=== PATIENT | female | born 1980 | race Native Hawaiian/Other Pacific Islander ===

== ENCOUNTER 2019-06-07 16:01 | Outpatient (CLI) | payer OTHER | END 2019-06-07 20:55 | disposition home or self-care (01) | LOC: RAD 16:01 | DX: M25.571 Pain in right ankle and joints of right foot (principal) ==

== ENCOUNTER 2020-11-04 13:01 | Outpatient (CLI) | payer OTHER ==
[~2020-11-04] VITALS: Ht 160 cm; Wt 131.5 kg
[2020-11-04 13:50] VITALS: BP 157/84; TEMP 98
== END 2020-11-04 20:38 | disposition home or self-care (01) ==
LOC: INF 13:01
PROVIDERS: ATTEND Family Medicine
DX: D50.9 Iron deficiency anemia, unspecified (principal)
CPT/HCPCS: 96365; J1756

== ENCOUNTER 2020-11-11 13:00 | Outpatient (CLI) | payer OTHER ==
[~2020-11-11] VITALS: Ht 160 cm; Wt 131.1 kg
== END 2020-11-11 19:22 | disposition home or self-care (01) ==
LOC: INF 13:00
PROVIDERS: ATTEND Family Medicine
DX: D50.9 Iron deficiency anemia, unspecified (principal)
CPT/HCPCS: 96365; J1756

== ENCOUNTER 2021-04-15 10:38 | Outpatient (CLI) | payer OTHER | END 2021-04-15 20:00 | disposition home or self-care (01) | LOC: RAD 10:38 | PROVIDERS: ATTEND Nurse Practitioner Primary Care | DX: M54.59 Other low back pain (principal) ==

== ENCOUNTER 2021-06-02 11:57 | Outpatient (CLI) | payer OTHER ==
[2021-06-02 13:04] LABS: POTASSIUM 4.1 mmol/L (3.6-5.2)
== END 2021-06-02 18:56 | disposition home or self-care (01) ==
LOC: LABW 11:57
PROVIDERS: Family Medicine; ATTEND Nurse Practitioner Family
DX: D50.9 Iron deficiency anemia, unspecified (principal)
CPT/HCPCS: 36415; 80053; 82728; 82746; 83540; 83550; 84425

== ENCOUNTER 2021-07-02 13:40 | Outpatient (CLI) | payer OTHER ==
[2021-07-02 14:55] LABS: PLATELET COUNT 287 K/uL (152-353)
[2021-07-02 15:05] LABS: POTASSIUM 4.7 mmol/L (3.6-5.2)
== END 2021-07-02 20:01 | disposition home or self-care (01) ==
LOC: LABW 13:40
PROVIDERS: ATTEND Nurse Practitioner Family
DX: R06.2 Wheezing (principal); R60.0 Localized edema; M10.071 Idiopathic gout, right ankle and foot
CPT/HCPCS: 36415; 80053; 81000; 82550; 82553; 83880; 84484; 84550; 85027

== ENCOUNTER 2021-12-29 11:03 | Outpatient (CLI) | payer OTHER ==
[~2021-12-29] VITALS: Ht 157.5 cm; Wt 68.0 kg
[2021-12-29 11:10] VITALS: BP 143/88; TEMP 97.8
[2021-12-29 12:20] VITALS: BP 140/72; TEMP 97.7
== END 2021-12-29 20:23 | disposition home or self-care (01) ==
LOC: INF 11:03
PROVIDERS: ATTEND Family Medicine
DX: D50.9 Iron deficiency anemia, unspecified (principal)
CPT/HCPCS: 96365; J1756

== ENCOUNTER 2022-10-07 14:10 | Outpatient (CLI) | payer OTHER | END 2022-10-07 19:23 | disposition home or self-care (01) | LOC: US 14:10 | PROVIDERS: ATTEND Nurse Practitioner Family | DX: R60.0 Localized edema (principal) ==

== ENCOUNTER 2022-11-23 15:29 | Outpatient (CLI) | payer OTHER | END 2022-11-23 18:59 | disposition home or self-care (01) | LOC: RAD 15:29 | PROVIDERS: ATTEND Physician Assistant | DX: M54.59 Other low back pain (principal) ==

== ENCOUNTER 2023-01-25 14:49 | Inpatient (IN) | payer OTHER ==
[2023-01-25] VITALS (7 sets, daily range): BP systolic 148–185; BP diastolic 88–124; TEMP 97–98.7; Ht 160 cm; Wt 162.0 kg
[~2023-01-25] VITALS: Ht 160 cm; Wt 162.0 kg
[2023-01-25 16:01] LABS: PLATELET COUNT 395 K/uL (152-353)
[2023-01-25 16:14] LABS: SODIUM 138 mmol/L (136-145)
[2023-01-25] MEDS ORDERED: ALLO100T22 PO (20:30)
[2023-01-25] MEDS ORDERED: ADDERALL20 MG PO (20:31)
[2023-01-25] MEDS ORDERED: CELEBREX200 MG PO (20:31)
[2023-01-25] MEDS ORDERED: NYAMYC100000 UNI TOP (20:32)
[2023-01-25] MEDS ORDERED: FERROUS SULF325 MG PO (20:32)
[2023-01-25] MEDS ORDERED: GABA400C2 PO (20:33)
[2023-01-25] MEDS ORDERED: EUTHYROX75 MCG PO (20:33)
[2023-01-25] MEDS ORDERED: VENL37.511 PO (20:34)
[2023-01-25] MEDS ORDERED: METF500T PO (20:34)
[2023-01-25] MEDS ORDERED: IBU800 MG PO (20:35)
[2023-01-26 03:47] VITALS: BP 138/80; TEMP 98.2
[2023-01-26 05:34] LABS: POTASSIUM 4.2 mmol/L (3.6-5.2)
[2023-01-26 05:50] LABS: PLATELET COUNT 375 K/uL (152-353)
[2023-01-26 08:00] VITALS: BP 177/105; TEMP 98.3
[2023-01-26 12:00] VITALS: BP 155/91; TEMP 98.2
[2023-01-26 16:00] VITALS: BP 145/96; TEMP 97.8
[2023-01-26 20:00] VITALS: BP 140/91; TEMP 98.2
[2023-01-27] VITALS (7 sets, daily range): BP systolic 105–167; BP diastolic 58–86; TEMP 97.5–98.3
[2023-01-27 05:59] LABS: POTASSIUM 4.6 mmol/L (3.6-5.2)
[2023-01-27 06:42] LABS: PLATELET COUNT 334 K/uL (152-353)
[2023-01-28 03:43] VITALS: BP 127/78; TEMP 98.4
[2023-01-28 04:50] LABS: POTASSIUM 4.7 mmol/L (3.6-5.2)
[2023-01-28 04:57] LABS: PLATELET COUNT 300 K/uL (152-353)
[2023-01-28 08:00] VITALS: BP 137/85; TEMP 98.2
[2023-01-28 12:00] VITALS: BP 142/85; TEMP 98.2
[2023-01-28 16:00] VITALS: BP 136/79; TEMP 97.9
[2023-01-28 20:00] VITALS: BP 148/94; TEMP 97.9
[2023-01-29] VITALS (7 sets, daily range): BP systolic 127–156; BP diastolic 71–101; TEMP 96.9–98.4
[2023-01-29 09:22] LABS: PLATELET COUNT 320 K/uL (152-353)
[2023-01-29 09:38] LABS: POTASSIUM 4.7 mmol/L (3.6-5.2)
[2023-01-30 04:00] VITALS: BP 143/91; TEMP 98.4
[2023-01-30 06:12] LABS: PLATELET COUNT 275 K/uL (152-353)
[2023-01-30 07:55] VITALS: BP 103/71; TEMP 97.5
[2023-01-30 12:00] VITALS: BP 124/79; TEMP 97.3
== END 2023-01-30 12:39 | disposition short-term general hospital (02) | DRG 189 ==
LOC: ED 14:49 → MED/SURG 16:49
PROVIDERS: Family Medicine; ADMIT Nurse Practitioner Family; ATTEND Internal Medicine Endocrinology, Diabetes & Metabolism
DX: J96.01 Acute respiratory failure with hypoxia (principal); E03.5 Myxedema coma; J18.9 Pneumonia, unspecified organism; J44.1 Chronic obstructive pulmonary disease with (acute) exacerbation; N17.8 Other acute kidney failure; B37.89 Other sites of candidiasis; Z68.44 Body mass index [BMI] 60.0-69.9, adult; I50.9 Heart failure, unspecified; E87.8 Other disorders of electrolyte and fluid balance, not elsewhere classified; G47.33 Obstructive sleep apnea (adult) (pediatric); F17.210 Nicotine dependence, cigarettes, uncomplicated; R53.83 Other fatigue; F41.8 Other specified anxiety disorders; E28.2 Polycystic ovarian syndrome; I11.0 Hypertensive heart disease with heart failure; E03.8 Other specified hypothyroidism; E66.01 Morbid (severe) obesity due to excess calories; F12.10 Cannabis abuse, uncomplicated
CPT/HCPCS: 36415; 36600; 80048; 80053; 80307; 81002; 81025; 82550; 82805; 83735; 83880; 84100; 84443; 84484; 84702; 85007; 85027; 85379; 87635; 93005; 94660; 94664; 94760; 96365; 96366; 96367; 96374; 96375; 96376; 99284; J0456; J0696; J1450; J1940; J2920; J2930; J3475; U0003